=== PATIENT | female | born 1950 | race Caucasian/White ===

== ENCOUNTER 2016-11-06 05:07 | Inpatient (IN) | payer OTHER ==
[2016-10-16 14:50] VITALS: BMI 26.0
--- NOTE | 2016-10-16 15:14 | PAT Medication Instructions ---
Service Date Oct 16, 2016. Current Home Medication List Cholecalciferol (Vitamin D3), 1 TAB PO NOON Hydrochlorothiazide (Hydrochlorothiazide), 1 TAB PO NOON Ibuprofen (Advil), 200 MG PO PRN Levothyroxine Sodium (Tirosint), 100 MCG PO QAM Red Yeast Rice Extract (Red Yeast Rice), 600 MG PO 4XWEEK Simvastatin (Zocor), 20 MG PO 3XWEEK Medication Instructions For Your Scheduled Surgery - Hold the following medications 2 weeks prior to surgery: Red Yeast Rice Extract (Red Yeast Rice), 600 MG PO 4XWEEK - Hold the following medications the morning of the surgery: Ibuprofen (Advil), 200 MG PO PRN (otherwise okay to continue per surgeon) - Take the following medications the morning of surgery with a sip of water OTHERWISE NOTHING TO EAT OR DRINK AFTER MIDNIGHT: Levothyroxine Sodium (Tirosint), 100 MCG PO QAM - Take the following medications as scheduled the afternoon on the day prior to surgery: Simvastatin (Zocor), 20 MG PO 3XWEEK Cholecalciferol (Vitamin D3), 1 TAB PO NOON Hydrochlorothiazide (Hydrochlorothiazide), 1 TAB PO NOON If you have any questions please call us at [phone] or [phone] or [phone]
[2016-10-16 15:42] LABS: URINE APPEARANCE CLEAR (CLEAR); URINE BILIRUBIN NEG (NEG); URINE COLOR YELLOW; URINE NITRITE NEG (NEG); URINE SPECIFIC GRAVITY 1.012 (1.000-1.030); UROBILINOGEN NEG (NEG)
--- NOTE | 2016-10-16 15:44 | DIAGNOSTIC IMAGING REPORT ---
CHEST PREADMISSION(PA/LAT) CLINICAL HISTORY: PAT preoperative evaluation COMPARISON STUDY: No previous studies for comparison. FINDINGS: The bones soft tissues and hemidiaphragms are normal. The cardiomediastinal silhouette is normal. The lungs are clear. The pulmonary vasculature is normal. IMPRESSION: Negative chest. Electronically signed by: Garry Garcia M.D. 10/16/2016 3:43 PM Dictated Date/Time: 10/16/2016 3:43 PM
[2016-10-16 15:54] LABS: MANUAL MICROSCOPIC REQUIRED? NO; REVIEW REQ? NO
[2016-10-16 15:55] LABS: INR 0.9 (0.9-1.1); PARTIAL THROMBOPLASTIN RATIO 0.9
[2016-10-16 15:59] LABS: BUN/CREATININE RATIO 15.4 (10-20); CALCIUM 9.3 mg/dl (8.5-10.1); CREATININE 0.79 mg/dl (0.60-1.20); POTASSIUM 4.1 mmol/L (3.5-5.1)
[2016-10-16 16:06] LABS: BASO % 0.7 %; BASO ABS # 0.04 K/uL (0-0.2); COMPLETE YES; EOS % 4.9 %; HEMATOCRIT 42.5 % (37-47); IG% 0.2 %; LYMPH % 43.4 %; LYMPH ABS # 2.56 K/uL (1.2-3.4); MEAN CORPUSCULAR HEMOGLOBIN 31.4 pg (25-34); MEAN CORPUSCULAR HGB CONC 33.4 g/dl (32-36); MEAN PLATELET VOLUME 10.8 fL (7.4-10.4); MONO % 6.6 %; NEUT % 44.2 %; PLATELET COUNT 204 K/uL (130-400); RED BLOOD COUNT 4.52 M/uL (4.2-5.4)
[2016-10-17 06:00] LABS: ESTIMATED AVERAGE GLUCOSE 108 mg/dl; HA1C FLAG Normal (Normal)
--- NOTE | 2016-10-30 11:44 | History and Physical ---
History & Physical Date Oct 30, 2016. Chief Complaint Left Knee Pain History of Present Illness Ms Day is a 66 year old female who complains of left knee pain. She presents with pain, crepitus, decreased rom and stiffness on the left side. She states that the symptoms have been chronic non-traumatic. The symptoms occur constantly with intermittent worsening. The problem is unchanged. Currently the patient states that the symptoms are moderate-severe. The pain is described as aching. The symptoms occur continuously. The symptoms are aggravated by daily activities, ascending stairs, descending stairs, walking and weight bearing. Senia states that the symptoms are relieved by no specific activity. In addition to left knee pain the patient is also experiencing decreased mobility, crepitus and stiffness. The patient has had a previous x-ray. Prior NSAIDs include aspirin. She has been treated with Has had Visco and Cortisone injection performed by Dr. Alcazar in the past. on the left side. She has had a brace or splint. Patient has had previous therapy. She attended physical therapy. Past Medical/Surgical History Past Medical History 1. Hypertension 2. High Cholesterol 3. Hypothyroidism Past Surgical History 1. Thyroidectomy 2. Cholecystectomy 3. Bilateral Cataract Surgery Additional History Hepatic Disease: No Kidney Disease: No Hypertension: Yes Heart Disease: No Bleeding Tendencies: No Infectious Diseases: No Allergies Coded Allergies: BEE STING (Unverified Allergy, Unknown, ANAPHYLAXIS, 10/16/16) NO KNOWN DRUG ALLERGIES (Unverified Allergy, Unknown, NONE, 10/16/16) Home Medications Scheduled Cholecalciferol (Vitamin D3), 1 TAB PO NOON Hydrochlorothiazide (Hydrochlorothiazide), 1 TAB PO NOON Ibuprofen (Advil), 200 MG PO PRN Levothyroxine Sodium (Tirosint), 100 MCG PO QAM Red Yeast Rice Extract (Red Yeast Rice), 600 MG PO 4XWEEK Simvastatin (Zocor), 20 MG PO 3XWEEK Physical Examination Skin: warm/dry, no rash Eyes: normal inspection, EOMI, sclerae normal ENT: normal ENT inspection, pharynx normal Head: normocephalic, atraumatic Respiratory/Chest: lungs clear, normal breath sounds, no respiratory distress Cardiovascular: regular rate, rhythm, no edema, no murmur Abdomen / GI: normal bowel sounds, non tender Addiitonal Comments: Left Knee Exam Knee ROM L * Active ROM - Flexion: 125 degrees, Extension: 3 degrees, Factors: normal, Description: active pain free range of motion. Passive ROM - Flexion: 135 degrees, Extension: 3 degrees, Factors: normal, Description: passive pain free range of motion. Knee ROM R * Active ROM - Flexion: 135 degrees, Extension: 0 degrees, Factors: normal, Description: active pain free range of motion. Passive ROM - Flexion: 135 degrees, Extension: 0 degrees, Factors: normal, Description: passive pain free range of motion. Strength LE Normal Strength Description - Normal lower extremity: Bilateral. Knee * Gait: Antalgic. Alignment - Left: neutral. Ecchymosis - Left: negative. Effusion - Left: mild. Swelling - Left: mild. Flexibility - Left: normal. Maximum tenderness - Left: Medial Joint Line. Patella exam - Crepitation - Left : negative. Patella position - Left: neutral. Tilt - Left: equal. [facility] - medial - Left: Positive. Knee Comments The patient has no calf tenderness. Progressive degenerative joint disease involving medial compartment and patellofemoral compartment with progressive loss of joint space from previous February x-rays she had recent vein ablation and laser surgery but her medial sided joint line pain is only gotten worse discussed treatment options including consideration for patient matched total knee arthroplasty was complications postoperative management of physical therapy DVT prophylaxis antibiotics will make arrange proceed forward with this at her earliest convenience. Knee Normal Inspection - Atrophy - Left: Absent. Skin - Left: Normal. Patella exam - Apprehension - Left: Negative. Q-angle - Left: Normal. Javier's - Left: Negative. [facility]'s - lateral - Left: Negative. Posterior drawer - Left: Negative. Anterior drawer - Left: Negative. Valgus stress - Left: Negative. Varus stress - Left: Negative. Extensor lag - Left: Normal. Left Knee Xray: Xrays reviewed of the left knee showing findings consistent with degenerative joint disease including joint space narrowing, subchondral sclerosis and peripheral osteophyte formation. no acute bony pathology, overall varus alignment. Impression: degenerative joint disease of the left knee with no acute bony pathology noted. Diagnosis 1. Left Knee Osteoarthritis 2. Past Medical History as noted above Plan of Treatment Further care discussed with patient and at this point in time has failed conservative measures and would like to proceed with a left total knee replacement. Plan on discharge will be home with home physical therapy. DVT prophalaxis with TEDs, SCDs and will also place on aspirin 81 mg p.o. b.i.d. for a month postop. Patient will have follow up appointment in our office two weeks post op for staple/suture removal and re-evaluation. Patient otherwise has no other questions or concerns.
[~2016-11-06] VITALS: Ht 162.6 cm; Wt 69.8 kg
[2016-11-06] VITALS (8 sets, daily range): BP systolic 99–146; BP diastolic 63–94; PULSE 67–91; TEMP 36.5–36.8; O2SAT 95–99; Ht 162.6 cm; Wt 69.8 kg
[~2016-11-06 05:07] MED LIST: CHOL1000 PO; HYDR12.55 PO; IBUP-1050 PO; LEVO100C2 PO; RED600TA PO; SIMV20TA2 PO
[2016-11-06] MEDS ORDERED: METOCLOPRAMIDE HCL 10 MG TAB PO SCH (06:00)
[2016-11-06] MEDS ORDERED: DEXAMETHASONE 4 MG TAB PO SCH (06:00)
[2016-11-06] MEDS ORDERED: ROPIVACAINE 5MG/ML 30 ML 150 MG, BUPIVACAINE/EPINEPHR 0.5% MPF 30 ML, KETOROLAC TROMETH... INFIL SCH ×7 (06:00)
[2016-11-06] MEDS ORDERED: GABAPENTIN 300 MG CAP PO SCH (06:00)
[2016-11-06] MEDS ORDERED: LACTATED RINGER'S 1000ML 500 ML IV ONE (06:00)
[2016-11-06] MEDS ORDERED: ASPI81TA28 PO (06:00)
[2016-11-06] MEDS ORDERED: LACTATED RINGER'S 1000ML IV SCH (06:00)
[2016-11-06] MEDS ORDERED: CeleBREX 200 MG CAP PO SCH ×2 (06:00→09:00)
[2016-11-06] MEDS ORDERED: ACETAMINOPHEN 500 MG TAB PO SCH (06:00)
[2016-11-06] MEDS ORDERED: CEFAZOLIN 1000MG/55 ML D5W 55 ML IV SCH (06:00)
[2016-11-06] MEDS ORDERED: LACTATED RINGER'S 1000ML 1,000 ML IV SCH (06:00)
[2016-11-06] MEDS ORDERED: FAMOTIDINE 20 MG TAB PO SCH (06:00)
[2016-11-06] MEDS ORDERED: BUPIVACAINE 0.5 % 5 MG/1 ML PF 10ML VIAL ONE (06:17)
[2016-11-06] MEDS: TRANEXAMIC ACID INJ 1,000 MG in SODIUM CHLORIDE 0.9% 100ML 100 ML IV SCH ×2 (06:30→06:59)
[2016-11-06] MEDS ORDERED: POVIDONE-IODINE OP SOLN 30 ML BTL ONE (06:47)
[2016-11-06] MEDS ORDERED: BACITRACIN 50000 UNIT VIAL ONE (06:47)
[2016-11-06] MEDS ORDERED: ORTHO JOINT ANESTHETIC ONE (06:47)
[2016-11-06] MEDS ORDERED: MIDAZOLAM HCL 1 MG/ML 2ML VIAL ONE (06:57)
[2016-11-06] MEDS ORDERED: FENTANYL CITRATE INJ 50 MCG/1 ML 2 ML VIAL ONE (06:57)
--- NOTE | 2016-11-06 07:07 | History & Physical Bridge Note ---
H&P Re-Evaluation Bridge Note: I have examined the patient, reviewed the History & Physical and in the interval since the performance of the History & Physical I have noted the following changes of clinical significance: No changes noted
[2016-11-06] MEDS ORDERED: PHENYLEPHRINE 100MCG/ML 5ML SYR ONE (07:46)
[2016-11-06] MEDS ORDERED: EpHEDrine SULFATE 50MG/5ML SYR ONE (07:46)
[2016-11-06] MEDS ORDERED: LIDOCAINE HCL 2% 2 ML VIAL (20MG/ML) ONE (07:46)
[2016-11-06] MEDS ORDERED: PROPOFOL IV EMULSION 10 MG/ML 20 ML VIAL IV ONE (07:46)
--- NOTE | 2016-11-06 08:13 | [facility] Post Operative Brief Note ---
Immediate Operative Summary Operative Date Nov 06, 2016. Pre-Operative Diagnosis Left Knee Degenerative Joint Disease Post-Operative Diagnosis Same as preop Procedure(s) Performed Left Total Knee Arthroplasty crisostomo neph patient matched [facility] [address] Faustin Miner Pick Surgeon(s) Garry Carrillo PA-C Estimated Blood Loss 5 ml Findings severe djd lt knee Specimens A. Left Knee Bone and Tissue Complication(s) None Disposition Recovery Room / PACU
--- NOTE | 2016-11-06 08:30 | OPERATIVE REPORT ---
DATE OF OPERATION: 11/06/2016 PREOPERATIVE DIAGNOSIS: Severe end-stage tricompartmental degenerative joint disease, left knee. POSTOPERATIVE DIAGNOSIS: Same. PROCEDURE: Left total knee arthroplasty utilizing Olsen \T\ Nephew Journey II patient-matched total knee arthroplasty size 4 femur, 3 tibia, 10 poly, 29 oval patella. SURGEON: Dr. Faustin. INCOME TAX RETURN PREPARER: JILLIAN Fontaine, who was necessary for prepping, draping, retraction, wound closure of deep fascia, subcu and skin, and was necessary for the case. ESTIMATED BLOOD LOSS: 5 mL COMPLICATIONS: None. TOURNIQUET TIME: 45 minutes. HISTORY: The patient presents as a very pleasant 66-year-old white female with complaints of severe DJD about her knee. She has failed attempts at conservative management including physical therapy, viscosupplementation, anti-inflammatories, relative rest, activity modification, and she presents for left total knee arthroplasty. OPERATION AND FINDINGS: PROCEDURE: The patient was properly prepped and draped in supine position for total knee arthroplasty after identifying the appropriate surgical site. An anterior midline incision was made through the subcutaneous tissues down to the region of the extensor mechanism. A medial parapatellar incision was subsequently made. Meticulous hemostasis was obtained and performed at all times. The patella having been subluxed lateralward, medial and lateral meniscal remnants were excised. The patellar cut was then initially made and was sized to the appropriate size. After subluxing the tibia forward the appropriate meniscal fragments having been removed the distal femur was then cut first utilizing a Olsen and Nephew block. The distal femoral cuts and chamfer cuts were all made under direct visualization and the proximal tibial osteotomy cut was also made utilizing Olsen and Nephew blocks and checked with an extramedullary guide. The appropriate trial components on the femur and tibia were placed. Appropriate trial spacers were used to check flexion and extension gaps. With flexion and extension gaps being equal, the components were then subsequently after thorough irrigation and debridement lavage components were then subsequently cemented in the following order: femur, tibia and patella. Exparel was used for intraoperative anesthesia, the medial parapatellar incision was closed utilizing #1 Vicryl, subQ was closed with 2-0 Vicryl, skin was closed with skin clips. A sterile compression dressing was placed. The patient was taken to recovery room in stable condition. Due to the complex nature of the procedure, the entire surgery was performed with the operational assistance of JILLIAN Fontaine. The export sales assistant, under direct supervision, was involved in the actual performance of all aspects of the surgical procedure including hemostasis, tissue retraction and incision, instrument management, patient positioning, and wound closure. I attest to the content of the Intraoperative Record and any orders documented therein. Any exceptio ns are noted below.
[2016-11-06] MEDS: MULTIVITAMIN TAB PO SCH (09:00)
[2016-11-06] MEDS: PANTOprazole SOD 40 MG TAB PO SCH (09:00)
[2016-11-06] MEDS: DOCUSATE SODIUM 100 MG CAP PO SCH ×2 (09:00→21:28)
[2016-11-06] MEDS ORDERED: KETOROLAC TROMETHAMINE 15 MG/ML VIAL IV. PRN (09:00)
[2016-11-06] MEDS ORDERED: ALUMINUM/MAGNESIUM/SIMETH (MAALOX MAX) 30 ML UDC PO PRN (09:00)
[2016-11-06] MEDS ORDERED: SOD PHOSPHATE/SOD BIPHOSPHATE ENEMA 132 ML BTL PR PRN (09:00)
[2016-11-06] MEDS ORDERED: METOCLOPRAMIDE HCL INJ 5 MG/ML 2 ML VIAL IV PRN (09:00)
[2016-11-06] MEDS ORDERED: BISACODYL 10 MG SUPP PR PRN (09:00)
[2016-11-06] MEDS ORDERED: ZOLPIDEM TARTRATE 5 MG TAB PO PRN (09:00)
[2016-11-06] MEDS ORDERED: MAGNESIUM HYDROXIDE SUSP 30 ML UDC PO PRN (09:00)
[2016-11-06] MEDS ORDERED: MoRPHine SULFATE 2 MG/ML CARP IV PRN (09:00)
[2016-11-06] MEDS ORDERED: ONDANSETRON INJ 2 MG/ML 2 ML VIAL IV PRN ×2 (09:00→09:30)
--- NOTE | 2016-11-06 09:28 | Anesthesiology Progress Note ---
Anesthesia Post Op Note Date & Time Nov 06, 2016 at 09:29 Vital Signs Pain Intensity: 0 Vital Signs Past 12 Hours Date Time Temp Pulse Resp B/P Pulse Ox O2 Delivery O2 Flow Rate FiO2 11/06/16 08:55 37.0 86 16 103/65 96 Nasal Cannula 2 11/06/16 06:04 36.8 85 16 146/94 98 Room Air Notes Mental Status: alert / awake / arousable, participated in evaluation Pt Amnestic to Procedure: Yes Nausea / Vomiting: adequately controlled Pain: adequately controlled Airway Patency, RR, SpO2: stable & adequate BP & HR: stable & adequate Hydration State: stable & adequate Neuraxial Anesthesia: was administered, sensory block is resolving Anesthetic Complications: no major complications apparent
[2016-11-06] MEDS ORDERED: ATROPINE SULFATE 0.1 MG/ML 5ML SYR IV PRN (09:30)
[2016-11-06] MEDS ORDERED: EpHEDrine SULFATE INJ 50 MG/ML AMP IV PRN (09:30)
[2016-11-06] MEDS ORDERED: FENTANYL CITRATE INJ 50 MCG/1 ML 2 ML VIAL IV PRN (09:30)
--- NOTE | 2016-11-06 09:34 | DIAGNOSTIC IMAGING REPORT ---
LEFT KNEE 1 OR 2 VIEWS ROUTINE CLINICAL HISTORY: Postop examination degenerative arthritis COMPARISON: None. DISCUSSION: There are postsurgical changes of a total left knee arthroplasty and patellar resurfacing. The femoral and tibial components appear well seated. Overlying surgical drains are evident. There is air in the soft tissues consistent with recent surgery IMPRESSION: Postsurgical changes of a total left knee arthroplasty. Electronically signed by: Johnny Cunha M.D. 11/06/2016 9:33 AM Dictated Date/Time: 11/06/2016 9:32 AM
[2016-11-06] MEDS: OXYCODONE HCL 10 MG TABCR (OXYCONTIN) PO SCH ×2 (10:30→21:29)
[2016-11-06] MEDS: D5W AND 1/2NSS + 20MEQ KCL 1,000 ML IV SCH ×2 (10:57→21:28)
[2016-11-06] MEDS ORDERED: MoRPHine SULFATE 10 MG/ML CARP/VIAL IV PRN (11:00)
[2016-11-06] MEDS ORDERED: MoRPHine SULFATE 4 MG/ML 1 ML CARP\\VIAL IV PRN (11:00)
[2016-11-06] MEDS: FERROUS GLUCONATE 324 MG TAB PO SCH ×2 (12:58→18:05)
[2016-11-06] MEDS: CEFAZOLIN IV 1,000 MG in DEXTROSE 5% 50ML 50 ML IV SCH ×2 (13:33→21:28)
[2016-11-06] MEDS: ACETAMINOPHEN 500 MG TAB PO SCH ×2 (13:33→21:29)
[2016-11-06] MEDS: OXYCODONE HCL IR 5 MG TAB (IMMEDIATE RELEASE) PO PRN ×2 (15:52→23:50)
[2016-11-06] MEDS: SENNA 8.6 MG TAB PO SCH (21:28)
[2016-11-06] MEDS: ASPIRIN 81 MG ECTAB PO SCH (21:28)
[2016-11-07 04:25] VITALS: BP 99/62; PULSE 73; TEMP 36.6; O2SAT 96
[2016-11-07 05:45] LABS: PROTHROMBIN TIME (PATIENT) 10.2 SECONDS (9.0-12.0)
[2016-11-07 06:05] LABS: BUN/CREATININE RATIO 23.3 (10-20); CALCIUM 7.8 mg/dl (8.5-10.1); CREATININE 0.68 mg/dl (0.60-1.20); POTASSIUM 4.2 mmol/L (3.5-5.1)
[2016-11-07] MEDS: LEVOTHYROXINE 100 MCG TAB PO SCH (06:09)
[2016-11-07] MEDS: ACETAMINOPHEN 500 MG TAB PO SCH ×3 (06:09→20:43)
[2016-11-07] MEDS: OXYCODONE HCL IR 5 MG TAB (IMMEDIATE RELEASE) PO PRN ×3 (06:11→16:29)
[2016-11-07 06:50] LABS: HEMATOCRIT 33.3 % (37-47); MEAN CELL VOLUME 92.5 fL (80-100); MEAN CORPUSCULAR HEMOGLOBIN 30.3 pg (25-34); MEAN CORPUSCULAR HGB CONC 32.7 g/dl (32-36); MEAN PLATELET VOLUME 10.6 fL (7.4-10.4); PLATELET COUNT 163 K/uL (130-400); WHITE BLOOD COUNT 12.57 K/uL (4.8-10.8)
--- NOTE | 2016-11-07 07:12 | Orthopedic Progress Note ---
Orthopedic Progress Note Date of Service Nov 07, 2016. Subjective Post OP Day: 1 (left TKA) Reports: feeling well, pain controlled w PO medications, Denies: SOB, calf pain , chest pain, complaints, light headedness, nausea / vomiting Objective calves soft nontender, N/V intact, capillary refill less than 2 sec., dressing C /D/I, A&O x3, toes mobile Date Time Temp Pulse Resp B/P Pulse Ox O2 Delivery O2 Flow Rate FiO2 11/07/16 04:25 36.6 73 16 99/62 96 Room Air 11/06/16 23:45 Room Air 11/06/16 23:32 36.6 73 14 101/63 95 Room Air 11/06/16 19:19 36.6 67 16 99/65 95 Room Air 11/06/16 15:47 Room Air 11/06/16 15:43 36.5 67 16 101/66 96 Room Air 11/06/16 12:47 76 16 109/71 99 Nasal Cannula 2.0 11/06/16 11:50 72 16 110/67 99 Nasal Cannula 2.0 11/06/16 10:50 87 16 110/72 98 Nasal Cannula 2.0 11/06/16 10:20 91 16 106/72 98 Nasal Cannula 2.0 11/06/16 09:50 97 Nasal Cannula 3.0 11/06/16 09:50 Room Air 11/06/16 09:34 36.6 11/06/16 09:29 95/62 11/06/16 09:27 75 16 97 11/06/16 09:27 76 16 11/06/16 09:24 100/61 11/06/16 09:22 75 17 97 11/06/16 09:22 75 17 11/06/16 09:19 105/66 11/06/16 09:17 77 19 11/06/16 09:17 77 19 96 11/06/16 09:14 96/65 11/06/16 09:12 86 17 98 11/06/16 09:12 85 17 11/06/16 09:09 91/63 11/06/16 09:07 79 20 96 11/06/16 09:07 78 20 11/06/16 09:04 101/60 11/06/16 09:02 81 18 98 11/06/16 09:02 80 18 11/06/16 08:59 102/57 11/06/16 08:57 74 18 97 11/06/16 08:57 75 18 11/06/16 08:55 37.0 86 16 103/65 96 Nasal Cannula 2 11/06/16 08:54 104/64 11/06/16 08:52 83 23 96 11/06/16 08:52 85 23 Laboratory Results 24 Hours: Test 11/07/16 05:24 Hematocrit 33.3 % Hemoglobin 10.9 g/dL Prothromb Time International Ratio 1.0 Prothrombin Time 10.2 SECONDS Assessment & Plan Assessment: POD #1 s/p Left TKA -PT/OT -dvt proph with DANAY/SCD/ASA 1. Hypertension 2. High Cholesterol 3. Hypothyroidism Discharge Planning DVT Prophylaxis: TEDs, SCDs Therapy: Physical Therapy
[2016-11-07 07:15] VITALS: BP 92/65; PULSE 71; TEMP 36.5; O2SAT 96
[2016-11-07] MEDS: D5W AND 1/2NSS + 20MEQ KCL 1,000 ML IV SCH (08:26)
[2016-11-07] MEDS: FERROUS GLUCONATE 324 MG TAB PO SCH ×3 (08:27→17:39)
[2016-11-07] MEDS: DOCUSATE SODIUM 100 MG CAP PO SCH ×2 (08:28→20:43)
[2016-11-07] MEDS: PANTOprazole SOD 40 MG TAB PO SCH (08:28)
[2016-11-07] MEDS: ASPIRIN 81 MG ECTAB PO SCH ×2 (08:28→20:43)
[2016-11-07] MEDS: MULTIVITAMIN TAB PO SCH (08:28)
[2016-11-07] MEDS: OXYCODONE HCL 10 MG TABCR (OXYCONTIN) PO SCH ×2 (08:31→20:43)
--- NOTE | 2016-11-07 10:08 | DIAGNOSTIC IMAGING REPORT ---
ULTRASOUND VENOUS DOPPLER LWR EXT BILA CLINICAL HISTORY: Lower leg pain COMPARISON STUDY: No previous studies for comparison. FINDINGS: Real-time and color flow Doppler imaging were performed. Flow was seen within the femoral, popliteal and calf veins with no intraluminal thrombus demonstrated. The saphenous vein is patent. IMPRESSION: No evidence of lower extremity DVT. Electronically signed by: Johnny Cunha M.D. 11/07/2016 10:07 AM Dictated Date/Time: 11/07/2016 10:06 AM
[2016-11-07 11:05] VITALS: BP 120/74
--- NOTE | 2016-11-07 14:44 | Discharge Instructions ---
Discharge Instructions Admission Reason for Admission: Left Knee Osteoarthritis Discharge Discharge Diagnosis / Problem: left knee replacement Discharge Goals Goal(s): Decrease discomfort, Improve function, Increase independence Activity Recommendations Activity Limitations: as noted below Weightbearing Status: Left weightbearing (as tolerated) . Instructions / Follow-Up Instructions / Follow-Up ACTIVITY RECOMMENDATIONS: SELF CARE INSTRUCTIONS AFTER TOTAL KNEE REPLACEMENT A. You may need to continue a physical therapy program after discharge from the hospital. There are several options available to you. Your doctor will assist you in selecting the best one for you. 1. An out-patient facility 2 to 3 times a week for therapy or home therapy. 2. Continue working on all exercises taught to you in the hospital. Your goals should be to increase bending of your knee to 90 degrees and beyond and to fully straighten your knee. B. You may progress at your own pace from walking with a walker or crutches to a cane; then to no assistive devices. C. Make walking a part of your daily routine. Be up as much as comfortable with rest periods throughout the day. Rest with leg elevation is very important. Use the ice wrap frequently for the first 3-4 weeks. D. There are no restrictions on activities. You may ride in a car, shop, participate in ambulatory services representative and all social activities. E. Wear the long elastic stockings (DANAY hose) 20 hours a day for 2 weeks after surgery. They can be removed several times a day for laundering and for a bath. F. You may shower, no tub baths until cleared by your doctor. SPECIAL CARE INSTRUCTIONS: VERY IMPORTANT TO READ AND REVIEW A. There are a few signs you need to watch for after you are home. Call [facility] [place] if you notice any of the followin. Increased severe knee pain. Some pain is expected especially when you exercise. 2. Increased swelling in your leg or knee; pain or swelling of the calf muscle in either lower leg. 3. Any fluid drainage from the incision. 4. Shortness of breath or chest pain. B. Please call [facility] at if you have any concerns or questions about your operation or recovery. The doctor or his nurse will return your call promptly. C. You must take antibiotics before dental work, bladder, bowel or other surgery. Your doctor will provide you with a permanent care to carry describing this precaution. IMPORTANT: * REMEMBER TO TAKE ASPIRIN, 81 MG, TWICE DAILY FOR 4 WEEKS UNLESS OTHERWISE DIRECTED. THIS IS YOUR BLOOD THINNER. * HIGH RISK PATIENTS MAY BE PRESCRIBED A STRONGER BLOOD THINNER. THIS WILL BE PROVIDED AT DISCHARGE. * CALL IF INCREASED PAIN, REDNESS, DRAINAGE OR FEVER GREATER THAT 101. * WEAR DANAY HOSE 20 HOURS PER DAY FOR 2 WEEKS. * DERMABOND Prineo- This is a mesh tape dressing that is covered with glue. It should remain in place until the incision is properly healed, usually 10-14 days. This dressing is designed to naturally slough off. You may trim the excess mesh tape as it peels off. Incision may be briefly wet in a shower. Dry immediately by blotting with a clean, dry towel. Do not bath or swim until instructed by your doctor. Do not scratch, rub, or pick at the dressing. Do not apply any topical ointments or lotions until dressing is completely removed and/or instructed by your doctor. There may be a small piece of suture material at one end of your incision. Do not pull or trim this. If it is bothersome or catching on clothing, you may cover it with a band-aid. FOLLOW UP VISIT: If appointment is not already scheduled: Please call [facility] [place] to make a follow-up appointment for 2 weeks after your surgery at . Current Hospital Diet Patient's current hospital diet: Regular Diet Discharge Diet Recommended Diet: Regular Diet Procedures Procedures Performed: Left Total Knee Arthroplasty kranthi tinajero patient matched Journey 2 Pending Studies Studies pending at discharge: no Laboratory Results Hemoglobin A1c Test 10/16/16 15:18 Range/Units Estimated Average Glucose 108 mg/dl Hemoglobin A1c 5.4 4.5-5.6 % Medical Emergencies . Who to Call and When: Medical Emergencies: If at any time you feel your situation is an emergency, please call 911 immediately. . Non-Emergent Contact Non-Emergency issues call your: Primary Care Provider, Surgeon . "Provider Documentation" section prepared by Garry Carrillo. VTE Core Measure Inpt VTE Proph given/why not?: Other Anticoagulation (ASA 81mg po bid x 1 month ), T.E.DMeliza Stockings, SCD's [place] Drug Monitoring Program Search Results: patient reviewed within database, no issues identified
[2016-11-07 15:03] VITALS: BP 111/72; PULSE 72; TEMP 36.9; O2SAT 98
[2016-11-07] MEDS: SENNA 8.6 MG TAB PO SCH (20:42)
[2016-11-07 23:05] VITALS: BP 135/74; PULSE 84; TEMP 37; O2SAT 96
[2016-11-08] MEDS: OXYCODONE HCL IR 5 MG TAB (IMMEDIATE RELEASE) PO PRN ×2 (02:00→07:29)
[2016-11-08] MEDS: LEVOTHYROXINE 100 MCG TAB PO SCH (05:55)
[2016-11-08] MEDS: ACETAMINOPHEN 500 MG TAB PO SCH (05:56)
[2016-11-08 06:00] VITALS: BP 125/82; PULSE 89; TEMP 36.9; O2SAT 95
[2016-11-08] MEDS: FERROUS GLUCONATE 324 MG TAB PO SCH (07:21)
[2016-11-08] MEDS: MULTIVITAMIN TAB PO SCH (07:21)
[2016-11-08] MEDS: PANTOprazole SOD 40 MG TAB PO SCH (07:21)
[2016-11-08] MEDS: ASPIRIN 81 MG ECTAB PO SCH (07:22)
[2016-11-08] MEDS: DOCUSATE SODIUM 100 MG CAP PO SCH (07:22)
[2016-11-08] MEDS: OXYCODONE HCL 10 MG TABCR (OXYCONTIN) PO SCH (07:29)
--- NOTE | 2016-11-08 07:29 | Orthopedic Progress Note ---
Orthopedic Progress Note Date of Service Nov 08, 2016. Subjective Post OP Day: 2 Reports: feeling well, pain controlled w PO medications, Denies: SOB, calf pain , chest pain, complaints, light headedness, nausea / vomiting Objective calves soft nontender, N/V intact, capillary refill less than 2 sec., incision C /D/I, A&O x3, toes mobile Date Time Temp Pulse Resp B/P Pulse Ox O2 Delivery O2 Flow Rate FiO2 11/08/16 07:19 Room Air 11/08/16 06:00 36.9 89 16 125/82 95 Room Air 11/07/16 23:05 37.0 84 16 135/74 96 Room Air 11/07/16 19:15 Room Air 11/07/16 15:03 36.9 72 16 111/72 98 Room Air 11/07/16 08:15 Room Air Assessment & Plan Assessment: POD #2 s/p Left TKA -PT/OT -dvt proph with DANAY/SCD/ASA 1. Hypertension 2. High Cholesterol 3. Hypothyroidism Discharge Planning Discharge Planning: home with home health DVT Prophylaxis: TEDs, SCDs Therapy: Physical Therapy
[2016-11-08] MEDS ORDERED: CLC100 PO (07:30)
[2016-11-08] MEDS ORDERED: ONDA8TAB6 PO (07:30)
[2016-11-08] MEDS ORDERED: RXC5 PO (07:30)
[2016-11-08] MEDS ORDERED: CLB200 PO (07:30)
[2016-11-08] MEDS ORDERED: OXYSR10 PO (07:30)
[2016-11-08] MEDS ORDERED: ACET-1138 PO (07:30)
[2016-11-08] MEDS ORDERED: ASPEC81 PO (07:30)
--- NOTE | 2016-11-08 07:33 | Discharge Summary ---
Orthopedic Discharge Summary Admission Date/Reason Nov 06, 2016 at 07:00 Left Knee Osteoarthritis. Discharge Date/Disposition Nov 08, 2016 Home with services Diagnosis Principal Diagnosis: left knee DJD Procedure(s) Performed Left total knee arthroplasty utilizing [facility] patient-matched total knee arthroplasty size 4 femur, 3 tibia, 10 poly, 29 oval patella. Consultations NONE Medication Reconciliation New Medications: Ondansetron Hcl (Zofran) 8 Mg Tab 8 MG PO Q8 PRN for Nausea, #20 TAB Acetaminophen (Tylenol Extra Strength) 500 Mg Tab 1000 MG PO Q8H, #126 TAB Aspirin (Aspirin EC Low Dose) 81 Mg Ectab 81 MG PO BID, #60 Celecoxib (Celebrex) 200 Mg Cap 200 MG PO BID, #60 CAP Docusate Sodium (Docusate Sodium) 100 Mg Cap 100 MG PO BID for 10 Days, #20 CAP Oxycodone HCl (Oxycontin) 10 Mg Tabcr 10 MG PO Q12, #20 Oxycodone HCl (Oxycodone HCl) 5 Mg Tab 5-10 MG PO Q4H PRN for Pain, #60 TAB Continued Medications: Cholecalciferol (Vitamin D3) 1,000 Unit Tab 1 TAB PO NOON for 90 Days, TAB 3 Refills Hydrochlorothiazide (Hydrochlorothiazide) 12.5 Mg Tab 1 TAB PO NOON for 90 Days, TAB 3 Refills Levothyroxine Sodium (Tirosint) 100 Mcg Cap 100 MCG PO QAM Simvastatin (Zocor) 20 Mg Tab 20 MG PO 3XWEEK, TAB Wednesdays NOON Discontinued Medications: Aspirin (Aspirin Ec) 81 Mg Tab 81 MG PO DAILY Ibuprofen (Advil) 200 Mg Tab 200 MG PO PRN, TAB Red Yeast Rice Extract (Red Yeast Rice) 600 Mg Tab 600 MG PO 4XWEEK Thursdays-NOON Admission Physical Exam As per Admitting History & Physical. Hospital Course Patient was a same day admission after undergoing a successful left TKA. she tolerated the procedure well. Post-operatively, her activity was progressed and well tolerated. Please refer to daily progress notes and PT notes for complete details. After exam on 11/08/16, patient felt to be stable for discharge home with HHPT. Patient will f/u in the office in 2 weeks for further evaluation including x-rays and incision check, sooner if having any issues or concerns. Below are pertinent labs/studies during their hospital stay: Last Resulted CBC 11/07/16 05:24 Last Resulted BMP 11/07/16 05:24 Last Vital Signs Documentation Date Time Temp Pulse Resp B/P Pulse Ox O2 Delivery O2 Flow Rate FiO2 11/08/16 07:19 Room Air 11/08/16 06:00 36.9 89 16 125/82 95 11/06/16 12:47 2.0 Discharge Instructions ACTIVITY RECOMMENDATIONS: SELF CARE INSTRUCTIONS AFTER TOTAL KNEE REPLACEMENT A. You may need to continue a physical therapy program after discharge from the hospital. There are several options available to you. Your doctor will assist you in selecting the best one for you. 1. An out-patient facility 2 to 3 times a week for therapy or home therapy. 2. Continue working on all exercises taught to you in the hospital. Your goals should be to increase bending of your knee to 90 degrees and beyond and to fully straighten your knee. B. You may progress at your own pace from walking with a walker or crutches to a cane; then to no assistive devices. C. Make walking a part of your daily routine. Be up as much as comfortable with rest periods throughout the day. Rest with leg elevation is very important. Use the ice wrap frequently for the first 3-4 weeks. D. There are no restrictions on activities. You may ride in a car, shop, participate in retort cooler and all social activities. E. Wear the long elastic stockings (DANAY hose) 20 hours a day for 2 weeks after surgery. They can be removed several times a day for laundering and for a bath. F. You may shower, no tub baths until cleared by your doctor. SPECIAL CARE INSTRUCTIONS: VERY IMPORTANT TO READ AND REVIEW A. There are a few signs you need to watch for after you are home. Call [facility] if you notice any of the followin. Increased severe knee pain. Some pain is expected especially when you exercise. 2. Increased swelling in your leg or knee; pain or swelling of the calf muscle in either lower leg. 3. Any fluid drainage from the incision. 4. Shortness of breath or chest pain. B. Please call [facility] at if you have any concerns or questions about your operation or recovery. The doctor or his nurse will return your call promptly. C. You must take antibiotics before dental work, bladder, bowel or other surgery. Your doctor will provide you with a permanent care to carry describing this precaution. IMPORTANT: * REMEMBER TO TAKE ASPIRIN, 81 MG, TWICE DAILY FOR 4 WEEKS UNLESS OTHERWISE DIRECTED. THIS IS YOUR BLOOD THINNER. * HIGH RISK PATIENTS MAY BE PRESCRIBED A STRONGER BLOOD THINNER. THIS WILL BE PROVIDED AT DISCHARGE. * CALL IF INCREASED PAIN, REDNESS, DRAINAGE OR FEVER GREATER THAT 101. * WEAR DNAAY HOSE 20 HOURS PER DAY FOR 2 WEEKS. * YOU MAY HAVE A LARGE BAND-AID LIKE DRESSING (SILVERON). THIS WILL REMAIN ON YOUR INCISION FOR 7 DAYS, THEN CAN BE REMOVED. IF INCISION IS LEAKING THROUGH DRESSING, CALL THE OFFICE . FOLLOW UP VISIT: If appointment is not already scheduled: Please call [facility] to make a follow-up appointment for 2 weeks after your surgery at .
[2016-11-08 07:53] VITALS: BP_SYST 118; BP_SYST 120; BP_DIAS 83; BP_DIAS 89; PULSE 80; TEMP 36.5; O2SAT 96
[2016-11-08 07:56] VITALS: BP 120/89; PULSE 80; TEMP 36.5; O2SAT 96
[2016-11-08 09:50] VITALS: O2SAT 96
[2016-11-08 10:47] VITALS: BP 118/83; PULSE 80; TEMP 36.5; O2SAT 96
[2016-11-08] MEDS ORDERED: SIMVASTATIN 20 MG TAB PO SCH (12:00)
== END 2016-11-08 11:24 | disposition home health service (06) | DRG 470 ==
LOC: ENRESERVTM → ENRESERVDT → C.ACU 05:07 → C.3E 07:00
PROVIDERS: ADMIT Orthopaedic Surgery; ATTEND Orthopaedic Surgery
PROC: 0SRD0J9 Replacement of Left Knee Joint with Synthetic Substitute, Cemented, Open Approach (ICD-10-PCS; principal; 2016-11-06 07:15)
DX: M17.12 Unilateral primary osteoarthritis, left knee (principal); I10 Essential (primary) hypertension; E78.00 Pure hypercholesterolemia, unspecified; E89.0 Postprocedural hypothyroidism; Z87.891 Personal history of nicotine dependence; Z79.899 Other long term (current) drug therapy